=== PATIENT | female | born 1990 | race Caucasian/White ===

== ENCOUNTER 2024-10-24 21:04 | Emergency (ER) | payer BC | END 2024-10-24 21:39 | disposition home or self-care (01) | LOC: VM.ED 21:04 | DX: S61.012A Laceration without foreign body of left thumb without damage to nail, initial encounter (principal); Z91.013 Allergy to seafood; Z91.018 Allergy to other foods; Z79.899 Other long term (current) drug therapy; W27.2XXA Contact with scissors, initial encounter; Y93.89 Activity, other specified | CPT/HCPCS: 99282; 99283 ==